=== PATIENT | female | born 1985 ===

== ENCOUNTER 2018-06-25 12:42 | Emergency (ER) | payer BC ==
[2018-06-25 12:45] VITALS: O2SAT 99
[2018-06-25] MEDS ORDERED: Sodium Chloride 0.9% 1,000 ML IV STA (13:02)
--- NOTE | 2018-06-25 13:12 | ED PDOC ---
Syncope/Near Syncope/Dizziness Time Seen by Provider: 06/25/18 12:44 Chief Complaint (Nursing): Syncope History Per: Patient, Family () Activity At Onset Of Symptoms: Standing Associated Symptoms Preceding Syncopal Episode: Lightheadedness Seizure Or Post-ictal Symptoms: None Possible Causative Factor(s): Decreased PO Intake Fall Associated With With Symptoms: No Additional Complaint(s): Pt. states earlier today she was at her oral surgeons office when she had a syncopal episode. Reports that she has not had anything to eat or drink since 1999 yesterday as she was supposed to have a procedure done today. Pt. states she was standing up talking to her dentist when she began to feel dizzy and was able to sit down on a chair before she lost consciousness. She was informed by the dentist that she was unconscious for a few seconds and regained consciousness spontaneously while sitting down an a chair. As per her who was in a different room he noticed that people were running towards the room where the patient was and he immediately went there and by that time pt. was already conscious, talking, and answering questions appropriately. Pt. reports a hx of seizures and does not believe this is a seizure as she did not have a post-ictal period. Pt. states her last seizure was last year. States she was informed by her doctor that it was likely due to drinking alcohol and she was never placed on anti-seizure meds nor does she f/u with a neurologist. Pt. states she was given IV fluids afterwards by her dentist's staff. Currently without any symptoms. States she is feeling much better. Denies headache, head injury, N/V/D, stool/urinary incontinence, tongue biting, oral injury, chest pain, palpitations, SOB. Past Medical History Reviewed: Historical Data, Nursing Documentation, Vital Signs Vital Signs: Last Vital Signs Temp 98.2 F 06/25/18 12:43 Pulse 79 06/25/18 12:43 Resp 16 06/25/18 12:43 BP 113/58 L 06/25/18 12:43 Pulse Ox 99 06/25/18 12:43 - Medical History PMH: Seizures - Surgical History Surgical History: No Surg Hx - Family History Family History: States: No Known Family Hx Denies: OK, CAD - Home Medications Home Medications: Ambulatory Orders Medication Instructions Recorded No Known Home Med 06/25/18 - Allergies Allergies/Adverse Reactions: Allergies Allergy/AdvReac Type Severity Reaction Status Date / Time No Known Allergies Allergy Verified 06/25/18 12:43 Review of Systems ROS Statement: Except As Marked, All Systems Reviewed And Found Negative Neurological: Positive for: Weakness, Altered Mental Status Physical Exam - Reviewed Nursing Documentation Reviewed: Yes Vital Signs Reviewed: Yes - Physical Exam Appears: Positive for: Well, Non-toxic, No Acute Distress Head Exam: Positive for: ATRAUMATIC, NORMAL INSPECTION, NORMOCEPHALIC Skin: Positive for: Normal Color, Warm. Negative for: Rash Eye Exam: Positive for: EOMI, Normal appearance, PERRL ENT: Positive for: Normal ENT Inspection Neck: Positive for: Normal, Painless ROM Cardiovascular/Chest: Positive for: Regular Rate, Rhythm Respiratory: Positive for: CNT, Normal Breath Sounds Gastrointestinal/Abdominal: Positive for: Normal Exam, Soft. Negative for: Tenderness Back: Positive for: Normal Inspection. Negative for: L CVA Tenderness, R CVA Tenderness, Vertebral Tenderness (no c-spine tenderness) Extremity: Positive for: Normal ROM Neurologic/Psych: Positive for: Alert, Oriented, Gait (steady, unassisted). Negative for: Aphasia, Facial Droop - Laboratory Results Result Diagrams: 06/25/18 13:00 06/25/18 13:00 Urine POC: Negative Urine dip results: Positive for: Leukocyte Esterase (trace). Negative for: Ketones - ECG ECG: Positive for: Interpreted By Me ECG Rhythm: Positive for: Sinus Rhythm. Negative for: ST/T Changes Rate: 64 O2 Sat by Pulse Oximetry: 99 - Progress ED Course And Treament: Labs, IV NS bolus x 1 ordered. FSBS: 98 1445 On re-evaluation, pt. in no distress. States she is feeling much better. Offers no complaints at this time. Disposition - Clinical Impression Clinical Impression: Syncope - Patient ED Disposition Is Patient to be Admitted: No - Disposition Referrals: [facility] [Outside] Disposition: Routine/Home Disposition Time: 14:45 Condition: STABLE Additional Instructions: RAMON LANCE, thank you for letting us take care of you today. Your provider was Malik Draper MD and you were treated for SYNCOPE. The emergency medical care you received today was directed at your acute symptoms. If you were prescribed any medication, please fill it and take as directed. It may take several days for your symptoms to resolve. Return to the Emergency Department if your symptoms worsen, do not improve, or if you have any other problems. Please contact your doctor or call one of the physicians/clinics you have been referred to that are listed on the Patient Visit Information form that is included in your discharge packet. Bring any paperwork you were given at discharge with you along with any medications you are taking to your follow up visit. Our treatment cannot replace ongoing medical care by a primary care provider outside of the emergency department. Thank you for allowing the [facility] team to be part of your care today. If you had an X-Ray or CT scan: A Radiologist will review the ED reading if any change in treatment is needed we will contact you. If you had a blood, urine, or wound culture: It will take several days for the results, if any change in treatment is needed we will contact you. If you had an STI test: It will take 48 hours for the results. Please call after 1 week if you have not heard back. Instructions: Syncope (Fainting) (DC) Forms: [employer] (Ukrainian) Print Language: BULGARIAN
[2018-06-25 13:29] LABS: BASO % 0.3 % (0.0-2.0); EOS # 0.1 K/uL (0.0-0.7); EOS % 1.1 % (0.0-4.0); HEMOGLOBIN 13.1 g/dL (12.0-16.0); LYMPH # 1.3 K/uL (1.0-4.3); MEAN CELL VOLUME 89.4 fl (81.0-99.0); MEAN CORPUSCULAR HEMOGLOBIN 29.6 pg (27.0-31.0); MEAN CORPUSCULAR HGB CONC 33.1 g/dL (33.0-37.0); MEAN PLATELET VOLUME 8.1 fl (7.2-11.7); MONO # 0.4 K/uL (0.0-0.8); MONO % 5.2 % (0.0-10.0); NEUT # 5.9 K/uL (1.8-7.0); NEUT % 76.4 % (50.0-75.0); RBC 4.43 Mil/uL (3.80-5.20); RED CELL DISTRIBUTION WIDTH 13.1 % (11.5-14.5); WHITE BLOOD COUNT 7.7 K/uL (4.8-10.8)
[2018-06-25 13:31] LABS: ALB/GLOB RATIO 1.3 (1.0-2.1); ALBUMIN 4.2 g/dL (3.5-5.0); ALT/SGPT 23 U/L (9-52); AST/SGOT 15 U/L (14-36); BLOOD UREA NITROGEN 14 mg/dl (7-17); CALCIUM 8.8 mg/dL (8.4-10.2); GFR NON-AFRICAN AMERICAN > 60
[2018-06-25 15:21] VITALS: BP 107/80; PULSE 67; RESP 18; TEMP 98.6
--- NOTE | 2018-06-25 16:21 | CARD ---
APPROVED REPORT Date of service: 06/25/2018 EKG Measurement Heart [id number] <Conclusion> Normal sinus rhythm Normal ECG
== END 2018-06-25 15:25 | disposition home or self-care (01) ==
LOC: H.ER 12:42
DX: R55 Syncope and collapse (principal)
CPT/HCPCS: 80053; 81025; 82948; 85025; 87086; 93005; 96360; 99284; J7030